=== PATIENT | male | born 1945 | race Caucasian/White ===

== ENCOUNTER → 2017-10-04 | Outpatient (CLI) | payer OTHER ==
[~2017-10-04] MED LIST: OMNIPAQUE 350 MG/ML, 100ML BOTTLE ONE
== END | disposition home or self-care (01) ==
LOC: CFH 08:28
PROVIDERS: ATTEND Family Medicine
DX: C78.7 Secondary malignant neoplasm of liver and intrahepatic bile duct (principal); C18.9 Malignant neoplasm of colon, unspecified; K62.5 Hemorrhage of anus and rectum; R59.1 Generalized enlarged lymph nodes; K62.89 Other specified diseases of anus and rectum; N28.1 Cyst of kidney, acquired
CPT/HCPCS: 74177; 82565; Q9967

== ENCOUNTER 2017-10-14 09:12 | Day surgery (SDC) | payer OTHER ==
[~2017-10-14] VITALS: Ht 180.3 cm; Wt 69.6 kg
[2017-10-14 09:46] VITALS: BP 120/71
[2017-10-14] MEDS ORDERED: SODIUM CHLORIDE 0.9% 1,000 ML IV SCH (10:03)
[2017-10-14 10:15] LABS: INTERNATIONAL NORMALIZED RATIO 1.04 (0.93-1.1); PROTHROMBIN TIME 10.7 Seconds (9.6-11.5)
[2017-10-14] MEDS ORDERED: LIDOCAINE 1%, 20ML ONE (10:23)
[2017-10-14] MEDS ORDERED: FENTANYL PF 100 MCG/2ML ONE (10:43)
[2017-10-14] MEDS ORDERED: MIDAZOLAM 1 MG/ML, 2ML ONE (10:43)
== END 2017-10-14 12:37 ==
LOC: OUT 09:12
PROVIDERS: ATTEND Family Medicine
DX: C22.7 Other specified carcinomas of liver (principal); C18.9 Malignant neoplasm of colon, unspecified; F32.9 Major depressive disorder, single episode, unspecified
CPT/HCPCS: 36415; 47000; 77012; 85610; 88307; 99156; J2250; J3010; J3490; J7030; 99157

== ENCOUNTER 2017-11-18 09:00 | Day surgery (SDC) | payer OTHER ==
[~2017-11-18] VITALS: Ht 180.3 cm; Wt 69.8 kg
[2017-11-18] MEDS ORDERED: SODIUM CHLORIDE 0.9% 1,000 ML IV SCH (09:51)
[2017-11-18] MEDS ORDERED: CEFAZOLIN PMX 1GM/50ML 50 ML ONE (09:56)
[2017-11-18] MEDS ORDERED: CEFAZOLIN PMX 1GM/50ML 50 ML IV ONE (10:00)
[2017-11-18 10:14] VITALS: BP 118/67
[2017-11-18] MEDS ORDERED: NONE PER PT (10:21)
[2017-11-18] MEDS ORDERED: FENTANYL PF 100 MCG/2ML ONE ×2 (12:03)
[2017-11-18] MEDS ORDERED: FLUMAZENIL 0.1 MG/1 ML, 5ML ONE (12:04)
[2017-11-18] MEDS ORDERED: LIDOCAINE 2%, 20ML ONE (12:04)
[2017-11-18] MEDS ORDERED: MIDAZOLAM 1 MG/ML, 5ML ONE (12:04)
[2017-11-18] MEDS ORDERED: NALOXONE 1 MG/ML, 2ML ONE (12:04)
== END 2017-11-18 14:25 ==
LOC: RAD 09:00
PROVIDERS: ATTEND Internal Medicine Hematology & Oncology
DX: Z45.2 Encounter for adjustment and management of vascular access device (principal); C18.7 Malignant neoplasm of sigmoid colon; D50.9 Iron deficiency anemia, unspecified; Z87.891 Personal history of nicotine dependence
CPT/HCPCS: 36561; 76937; 77001; 99156; 99157; C1788; C1894; J0690; J1642; J2250; J3010; J3490; J7030; J2310

== ENCOUNTER → 2018-03-11 | Outpatient (CLI) | payer OTHER ==
[~2018-03-11] MED LIST changes: +CHEMO; +NONE PER PT
[2018-03-11 09:35] LABS: CREATININE 0.85 mg/dL (0.7-1.3)
== END | disposition home or self-care (01) ==
LOC: RAD 08:42
PROVIDERS: ATTEND Internal Medicine Hematology & Oncology
DX: C78.7 Secondary malignant neoplasm of liver and intrahepatic bile duct (principal); C20 Malignant neoplasm of rectum; N28.1 Cyst of kidney, acquired
CPT/HCPCS: 36415; 71260; 74177; 82565; Q9967

== ENCOUNTER → 2018-06-20 | Outpatient (CLI) | payer OTHER ==
[~2018-06-20] MED LIST changes: +CEFD300C37 PO; +FURO-93 PO; +METO25TA91 PO; +METR500T PO; +OMEP-110 PO; +POTA20PA25 PO
== END | disposition home or self-care (01) ==
LOC: RAD 11:20
PROVIDERS: ATTEND Internal Medicine Hematology & Oncology
DX: C78.7 Secondary malignant neoplasm of liver and intrahepatic bile duct (principal); C20 Malignant neoplasm of rectum; I25.10 Atherosclerotic heart disease of native coronary artery without angina pectoris; K43.5 Parastomal hernia without obstruction or gangrene
CPT/HCPCS: 71260; 74177; Q9967

== ENCOUNTER → 2018-07-17 | Outpatient (CLI) | payer OTHER ==
[~2018-07-17] MED LIST changes: -OMNIPAQUE 350 MG/ML, 100ML BOTTLE ONE; +[UNRECOGNIZED DRUG - REMARK]
== END | disposition home or self-care (01) ==
LOC: STAR 09:12
PROVIDERS: ATTEND Surgery
DX: Z01.818 Encounter for other preprocedural examination (principal); K43.5 Parastomal hernia without obstruction or gangrene
CPT/HCPCS: 93005

== ENCOUNTER 2018-07-23 11:09 | Day surgery (SDC) | payer OTHER ==
[~2018-07-23] VITALS: Ht 182.9 cm; Wt 75.5 kg
[~2018-07-23 11:09] MED LIST changes: +BUPIVACAINE/PF-EPI 0.5% 1:200K ONE
[2018-07-23 11:32] VITALS: BP 125/78
[2018-07-23] MEDS ORDERED: LACTATED RINGERS 1,000 ML IV SCH (11:35)
[2018-07-23] MEDS ORDERED: FENTANYL PF 100 MCG/2ML ONE ×4 (11:36→15:36)
[2018-07-23] MEDS ORDERED: LABETALOL 5MG/ML, 20ML IV PRN (12:00)
[2018-07-23] MEDS ORDERED: DIPHENHYDRAMINE 50 MG/ML, 1ML IVPush PRN (12:00)
[2018-07-23] MEDS ORDERED: PROCHLORPERAZINE 5 MG/ML, 2ML IM PRN (12:00)
[2018-07-23] MEDS ORDERED: GABAPENTIN 300 MG CAPSULE PO ONE (12:00)
[2018-07-23] MEDS ORDERED: hydrALAzine 20 MG/ML, 1ML IV PRN (12:00)
[2018-07-23] MEDS ORDERED: ACETAMINOPHEN 500 MG TABLET PO ONE (12:00)
[2018-07-23] MEDS ORDERED: PROPOFOL 10 MG/ML, 20ML ONE (12:45)
[2018-07-23] MEDS ORDERED: DEXAMETHASONE 4 MG/ML, 1ML ONE (12:45)
[2018-07-23] MEDS ORDERED: ROCURONIUM 10 MG/ML,10ML ONE (12:45)
[2018-07-23] MEDS ORDERED: CEFAZOLIN 1,000 MG ONE (12:45)
[2018-07-23] MEDS ORDERED: NEOSTIGMINE 1 MG/ML, 10ML ONE (12:45)
[2018-07-23] MEDS ORDERED: ESMOLOL 100 MG/10 ML ONE (12:45)
[2018-07-23] MEDS ORDERED: SUCCINYLCHOLINE 20 MG/ML, 10ML ONE (12:45)
[2018-07-23] MEDS ORDERED: GLYCOPYRROLATE 0.2MG/1ML, 5ML ONE (12:45)
[2018-07-23] MEDS ORDERED: ONDANSETRON 2MG/ML, 2ML ONE (12:45)
[2018-07-23] MEDS: FENTANYL PF 100 MCG/2ML IV PRN ×3 (14:27→15:05)
[2018-07-23] MEDS ORDERED: OXYcodone 5 MG/5 ML ORAL.SOL UDC ONE (14:27)
[2018-07-23] MEDS: OXYcodone 5 MG/5 ML ORAL.SOL UDC PO PRN ×2 (14:29→18:06)
[2018-07-23] MEDS ORDERED: OXYcodone 5 MG/5 ML ORAL.SOL UDC PO PRN (14:30)
[2018-07-23] MEDS ORDERED: MEPERIDINE/PF 50 MG/ML ONE (14:38)
[2018-07-23] MEDS: MEPERIDINE/PF 25MG/0.5ML IVPush PRN ×2 (14:43→14:52)
[2018-07-23] MEDS ORDERED: HYDROmorphone 2 MG/ML, 1ML ONE (15:14)
[2018-07-23] MEDS: HYDROmorphone 1 MG/ML, 1ML IV PRN ×2 (15:20→15:27)
[2018-07-23] MEDS ORDERED: DIAZEPAM 5 MG TABLET ONE (15:31)
[2018-07-23] MEDS ORDERED: DIAZEPAM 5 MG TABLET PO ONE (16:00)
[2018-07-23] MEDS ORDERED: morphine SULFATE 10 MG/ML, 1ML ONE (17:20)
[2018-07-23] MEDS ORDERED: morphine SULFATE 10 MG/ML, 1ML IVPush ONE (17:30)
== END 2018-07-23 18:50 | disposition home or self-care (01) ==
LOC: OUT 11:09
PROVIDERS: ATTEND Surgery
DX: K43.5 Parastomal hernia without obstruction or gangrene (principal); Z87.891 Personal history of nicotine dependence; Z85.048 Personal history of other malignant neoplasm of rectum, rectosigmoid junction, and anus; Z93.3 Colostomy status
CPT/HCPCS: 49654; J0330; J0690; J1100; J1170; J2175; J2270; J2405; J2704; J2710; J3010; J3490; J7120; S2900; C1781

== ENCOUNTER → 2018-10-01 | Outpatient (CLI) | payer MEDICARE, OTHER ==
[~2018-10-01] MED LIST changes: -BUPIVACAINE/PF-EPI 0.5% 1:200K ONE; +OMNIPAQUE 350 MG/ML, 100ML BOTTLE ONE
== END | disposition home or self-care (01) ==
LOC: CFH 08:52
PROVIDERS: ATTEND Internal Medicine Hematology & Oncology
DX: K43.5 Parastomal hernia without obstruction or gangrene (principal); C78.5 Secondary malignant neoplasm of large intestine and rectum; C20 Malignant neoplasm of rectum
CPT/HCPCS: 71260; 74160; 82565; Q9967

== ENCOUNTER → 2019-01-13 | Outpatient (CLI) | payer MEDICARE | END | disposition home or self-care (01) | LOC: CFH 10:40 | PROVIDERS: ATTEND Internal Medicine Hematology & Oncology | DX: C20 Malignant neoplasm of rectum (principal); K76.9 Liver disease, unspecified; R91.1 Solitary pulmonary nodule | CPT/HCPCS: 71260; 74177; Q9967 ==

== ENCOUNTER 2019-04-08 09:21 | Outpatient (CLI) | payer MEDICARE | END 2019-04-08 23:59 | disposition home or self-care (01) | LOC: CFH 09:21 | PROVIDERS: ATTEND Pathology Hematology | DX: C78.7 Secondary malignant neoplasm of liver and intrahepatic bile duct (principal); C20 Malignant neoplasm of rectum; R59.9 Enlarged lymph nodes, unspecified; R91.8 Other nonspecific abnormal finding of lung field; R59.0 Localized enlarged lymph nodes; Z93.3 Colostomy status | CPT/HCPCS: 71260; 74177; Q9967 ==

== ENCOUNTER → 2019-08-06 | Outpatient (CLI) | payer MEDICARE | END | disposition home or self-care (01) | LOC: CFH 13:17 | PROVIDERS: ATTEND Pathology Hematology | DX: C78.7 Secondary malignant neoplasm of liver and intrahepatic bile duct (principal); C20 Malignant neoplasm of rectum; R91.8 Other nonspecific abnormal finding of lung field; M47.816 Spondylosis without myelopathy or radiculopathy, lumbar region; Z87.891 Personal history of nicotine dependence | CPT/HCPCS: 71260; 74177; Q9967 ==

== ENCOUNTER 2019-08-18 14:30 | Outpatient (CLI) | payer MEDICARE ==
[~2019-08-18 14:30] MED LIST changes: -OMNIPAQUE 350 MG/ML, 100ML BOTTLE ONE
== END 2019-08-18 23:59 | disposition home or self-care (01) ==
LOC: ROC 14:30
PROVIDERS: ATTEND Radiology Radiation Oncology
DX: C20 Malignant neoplasm of rectum (principal); C78.7 Secondary malignant neoplasm of liver and intrahepatic bile duct
CPT/HCPCS: 99214; G0463

== ENCOUNTER 2019-09-19 23:24 | Observation (INO) | payer MEDICARE ==
[~2019-09-19] VITALS: Ht 180.3 cm; Wt 72.5 kg
[2019-09-20] MEDS ORDERED: ONDANSETRON 2MG/ML, 2ML IVPush ONE
[2019-09-20] MEDS ORDERED: SODIUM CHLORIDE 0.9% 1,000ML IVBOLUS ONE
[2019-09-20] MEDS ORDERED: SODIUM CHLORIDE FLUSH 10ML SYR IVF ONE
[2019-09-20] MEDS ORDERED: HYDROmorphone 2 MG/ML, 1ML IVPush PRN
[2019-09-20] MEDS ORDERED: HYDROmorphone 1 MG/ML, 1ML INJ ONE (00:08)
[2019-09-20] MEDS ORDERED: ONDANSETRON 2MG/ML, 2ML ONE (00:08)
[2019-09-20 00:14] LABS: BASOPHILS # (AUTO) 0.02 x10^3/uL (0-0.1); BASOPHILS % (AUTO) 0 % (0-1); EOSINOPHILS # (AUTO) 0.01 x10^3/uL (0-0.4); EOSINOPHILS % (AUTO) 0 % (1-7); LYMPHOCYTES # (AUTO) 0.95 x10^3/uL (1-3.4); LYMPHOCYTES % (AUTO) 8 % (22-44); MD NO; MEAN CORPUSCULAR HEMOGLOBIN 27.4 pg (27.5-34.5); MEAN CORPUSCULAR HGB CONC 31.7 g/dL (33.2-36.2); MEAN CORPUSCULAR VOLUME 86.5 fL (81-97); MEAN PLATELET VOLUME 7.7 fL (7.4-10.4); MONOCYTES # (AUTO) 0.94 x10^3/uL (0.2-0.8); MONOCYTES % (AUTO) 8 % (2-9); NEUTROPHILS # (AUTO) 9.89 x10^3/uL (1.8-6.8); NEUTROPHILS % (AUTO) 84 % (42-75); PLATELET COUNT 343 x10^3/uL (130-400); RED CELL DISTRIBUTION WIDTH 16.9 % (9.4-14.8)
--- NOTE | 2019-09-20 00:21 | NUR ---
PT TO US WITH TECH AT THIS TIME. FAMILY WAITING IN ROOM.
[2019-09-20 00:26] LABS: ALANINE AMINOTRANSFERASE 24 U/L (12-78); ALBUMIN 2.1 g/dL (3.4-5.0); ANION GAP 12 mmol/L (5-15); CHLORIDE 103 mmol/L (98-107); CREATININE 0.93 mg/dL (0.7-1.3)
[2019-09-20 00:28] LABS: ALKALINE PHOSPHATASE 270 U/L (45-117); BILIRUBIN,TOTAL 0.6 mg/dL (0.2-1.0); TOTAL PROTEIN 7.2 g/dL (6.4-8.2)
[2019-09-20] MEDS ORDERED: DIPHENHYDRAMINE 50 MG/ML, 1ML ONE (01:29)
[2019-09-20] MEDS ORDERED: METOCLOPRAMIDE 5 MG/ML, 2ML ONE (01:29)
[2019-09-20] MEDS ORDERED: SODIUM CHLORIDE 0.9% 1,000 ML IV SCH (01:30)
[2019-09-20] MEDS ORDERED: METOCLOPRAMIDE 5 MG/ML, 2ML IVPush ONE (01:30)
[2019-09-20] MEDS ORDERED: DIPHENHYDRAMINE 50 MG/ML, 1ML IVPush ONE (01:30)
--- NOTE | 2019-09-20 01:53 | NUR ---
PT TO CT NOW. REPORT CALLED TO KASHMIR LYMAN. PT RTG WHEN HE RETURNS FROM CT
--- NOTE | 2019-09-20 02:00 | NUR ---
PT RETURNED FROM CT. PT TO ADMIT BED NOW
[2019-09-20 02:50] LABS: MICROSCOPIC NOT IND
[2019-09-20 02:53] LABS: CULTURE INDICATED? NO
[2019-09-20 03:28] VITALS: BP 112/62
[2019-09-20] MEDS ORDERED: PROMETHAZINE 25 MG/ML, 1ML IM PRN (03:30)
[2019-09-20] MEDS ORDERED: ACETAMINOPHEN 325 MG TABLET PO PRN (03:30)
[2019-09-20] MEDS ORDERED: HEPARIN 25,000 UNITS/500ML PMX 500 ML IV PRN (03:30)
[2019-09-20] MEDS ORDERED: HEPARIN 5,000 UNITS/ML, 1ML IV ONE (03:30)
[2019-09-20] MEDS ORDERED: LACTATED RINGERS 1,000 ML IV SCH (03:30)
[2019-09-20] MEDS ORDERED: ONDANSETRON 2MG/ML, 2ML IVPush PRN (03:30)
[2019-09-20] MEDS ORDERED: morphine SULFATE 10 MG/ML, 1ML IVPush PRN (03:30)
[2019-09-20 04:34] LABS: INTERNATIONAL NORMALIZED RATIO 1.11 (0.93-1.1); PROTHROMBIN TIME 11.8 Seconds (9.6-11.5)
[2019-09-20] MEDS: PIPERACILLIN/TAZO/PMX 3.375GM 50 ML IV SCH ×2 (05:45→11:12)
[2019-09-20] MEDS ORDERED: OMNIPAQUE 350 MG/ML, 100ML BOTTLE ONE (06:01)
[2019-09-20 08:15] VITALS: BP 112/61
[2019-09-20] MEDS: POLYETHYLENE GLYCOL 17 GM PACKET PO SCH (08:38)
[2019-09-20] MEDS: LACTULOSE 20 GM/30 ML UDC PO SCH ×2 (11:38→22:14)
[2019-09-20] MEDS: HEPARIN 5,000 UNITS/ML, 1ML IV PRN ×2 (13:54→22:13)
[2019-09-20] MEDS: METRONIDAZOLE PMX 500MG/100ML 100 ML IV SCH ×2 (13:54→22:13)
[2019-09-20 14:50] VITALS: BP 108/65
[2019-09-20] MEDS: CEFTRIAXONE PMX 1GM/50ML 50 ML IV SCH (15:12)
[2019-09-20] MEDS: LACTATED RINGERS 1,000 ML IV SCH (20:27)
[2019-09-20 22:23] VITALS: BP 113/65
[2019-09-21 00:12] VITALS: BP 107/63
[2019-09-21 04:22] LABS: BASOPHILS # (AUTO) 0.01 x10^3/uL (0-0.1); BASOPHILS % (AUTO) 0 % (0-1); EOSINOPHILS % (AUTO) 1 % (1-7); LYMPHOCYTES # (AUTO) 1.61 x10^3/uL (1-3.4); LYMPHOCYTES % (AUTO) 21 % (22-44); MD NO; MEAN CORPUSCULAR HEMOGLOBIN 27.3 pg (27.5-34.5); MEAN CORPUSCULAR HGB CONC 31.6 g/dL (33.2-36.2); MEAN CORPUSCULAR VOLUME 86.4 fL (81-97); MEAN PLATELET VOLUME 7.7 fL (7.4-10.4); MONOCYTES # (AUTO) 0.88 x10^3/uL (0.2-0.8); MONOCYTES % (AUTO) 11 % (2-9); NEUTROPHILS # (AUTO) 5.12 x10^3/uL (1.8-6.8); NEUTROPHILS % (AUTO) 66 % (42-75); PLATELET COUNT 318 x10^3/uL (130-400); RED BLOOD COUNT 3.95 x10^6/uL (4.38-5.82); RED CELL DISTRIBUTION WIDTH 17.1 % (9.4-14.8)
[2019-09-21 04:30] LABS: ALANINE AMINOTRANSFERASE 17 U/L (12-78); ANION GAP 9 mmol/L (5-15); CALCIUM 8.6 mg/dL (8.5-10.1); CHLORIDE 107 mmol/L (98-107); CREATININE 0.82 mg/dL (0.7-1.3)
[2019-09-21 04:32] LABS: ALKALINE PHOSPHATASE 265 U/L (45-117); BILIRUBIN,TOTAL 0.4 mg/dL (0.2-1.0); TOTAL PROTEIN 6.7 g/dL (6.4-8.2)
[2019-09-21] MEDS: HEPARIN 5,000 UNITS/ML, 1ML IV PRN ×2 (04:46→12:06)
[2019-09-21] MEDS ORDERED: HEPARIN 25,000 UNITS/250ML PMX 250 ML IV PRN ×2 (05:00)
[2019-09-21] MEDS: LACTATED RINGERS 1,000 ML IV SCH (05:04)
[2019-09-21] MEDS: METRONIDAZOLE PMX 500MG/100ML 100 ML IV SCH ×2 (05:59→13:55)
[2019-09-21 07:26] VITALS: BP 116/66
[2019-09-21] MEDS: POLYETHYLENE GLYCOL 17 GM PACKET PO SCH (08:59)
[2019-09-21] MEDS: LACTULOSE 20 GM/30 ML UDC PO SCH (08:59)
[2019-09-21] MEDS ORDERED: APIX5TAB PO (12:31)
[2019-09-21 14:38] VITALS: BP 116/67
[2019-09-21] MEDS: CEFTRIAXONE PMX 1GM/50ML 50 ML IV SCH (15:05)
== END 2019-09-21 16:23 | disposition home or self-care (01) ==
LOC: ED 09-20 00:19 → EDIP 09-20 01:16 → INTOOBSV 09-20 01:16 → 4NE 09-20 02:07 → DCLOUNGE 09-21 16:04
PROVIDERS: ADMIT Family Medicine; ATTEND Hospitalist
DX: I81 Portal vein thrombosis (principal); E43 Unspecified severe protein-calorie malnutrition; C20 Malignant neoplasm of rectum; C78.7 Secondary malignant neoplasm of liver and intrahepatic bile duct; C78.00 Secondary malignant neoplasm of unspecified lung; C79.51 Secondary malignant neoplasm of bone; E87.2 Acidosis; I50.22 Chronic systolic (congestive) heart failure; K80.10 Calculus of gallbladder with chronic cholecystitis without obstruction; K59.00 Constipation, unspecified; R73.9 Hyperglycemia, unspecified; E86.0 Dehydration; D50.9 Iron deficiency anemia, unspecified; Z79.01 Long term (current) use of anticoagulants; Z68.22 Body mass index [BMI] 22.0-22.9, adult; Z87.891 Personal history of nicotine dependence
CPT/HCPCS: 36415; 71045; 74021; 74177; 76700; 78226; 80053; 81003; 83605; 83690; 83735; 84100; 84145; 85025; 85520; 85610; 87040; 96361; 96365; 96366; 96367; 96375; 96376; 99285; A9537; G0378; J0696; J1170; J1200; J1644; J2405; J2543; J2765; J7030; J7120; Q9967; 96374

== ENCOUNTER 2019-10-21 08:13 | Outpatient (CLI) | payer MEDICARE ==
[~2019-10-21 08:13] MED LIST changes: +APIX5TAB PO
== END 2019-10-21 23:59 | disposition home or self-care (01) ==
LOC: ROC 08:13
PROVIDERS: ATTEND Radiology Radiation Oncology
DX: C79.51 Secondary malignant neoplasm of bone (principal)
CPT/HCPCS: 99212; G0463

== ENCOUNTER 2019-11-05 12:42 | Inpatient (IN) | payer MEDICARE ==
[~2019-11-05] VITALS: Ht 180.3 cm; Wt 66.8 kg
--- NOTE | 2019-11-05 12:55 | NUR ---
1234: PT ARRIVED FROM INFUSION ROOM. PER REPORT RN WAS FLUSHING PT PORT. PT STATED "DIDNT FEEL GOOD" PT HAD SYNCOPAL EPISODE. BP 70'S. PT BEGAN TO FEEL BETTER PRIOR TO ARRIVAL. PT PALE. PT PLACED ON MONITORING EQUIPMENT. DR GO AT BEDSIDE TO RULA PT.
--- NOTE | 2019-11-05 12:56 | NUR ---
MARINE PHOTOGRAPHER AT BEDSIDE TO DRAW LABS. IV INFUSING WITHOUT REDNESS/SWELLING. PT SR/ST WITH OCC PVC'S PER MONITOR. PT STATES "FEELS LITTLE DIZZY, NOT MUCH"
[2019-11-05] MEDS ORDERED: SODIUM CHLORIDE 0.9% 1,000ML IVBOLUS ONE (13:00)
[2019-11-05] MEDS ORDERED: SODIUM CHLORIDE FLUSH 10ML SYR IVF ONE (13:00)
[2019-11-05 13:14] LABS: ALBUMIN 2.4 g/dL (3.4-5.0); ANION GAP 8 mmol/L (5-15); CALCIUM 8.5 mg/dL (8.5-10.1); CHLORIDE 106 mmol/L (98-107)
[2019-11-05 13:17] LABS: ALANINE AMINOTRANSFERASE 18 U/L (12-78); ALKALINE PHOSPHATASE 309 U/L (45-117); BILIRUBIN,TOTAL 0.8 mg/dL (0.2-1.0); CREATININE 0.94 mg/dL (0.7-1.3)
--- NOTE | 2019-11-05 13:30 | NUR ---
CENTRAL LINE DRESSING CHANGED.
--- NOTE | 2019-11-05 13:30 | NUR ---
PT ASKING FOR "SOMETHING TO EAT" DISCUSSED WITH DR GO, OK TO ORDER MEAL TRAY. PT PREFERS SOFT DIET "I DONT HAVE ANY TEETH" IV INFUSING WITHOUT IN PORT ACCESSED IN INFUSION ROOM. SR WITH PVC'S PER MONITOR. BP INCREASED TO 101/55
[2019-11-05 13:40] LABS: MEAN CORPUSCULAR HEMOGLOBIN 25.5 pg (27.5-34.5); MEAN CORPUSCULAR HGB CONC 31.9 g/dL (33.2-36.2); MEAN CORPUSCULAR VOLUME 79.8 fL (81-97); MEAN PLATELET VOLUME 7.1 fL (7.4-10.4); PLATELET COUNT 234 x10^3/uL (130-400); RED BLOOD COUNT 3.66 x10^6/uL (4.38-5.82); RED CELL DISTRIBUTION WIDTH 19.2 % (9.4-14.8)
[2019-11-05 13:43] LABS: MD YES
[2019-11-05 13:47] LABS: LYMPH#(MANUAL) 1.09 x10^3/uL (1-3.4); LYMPHS% (MANUAL) 68 % (22-44); SEG#(MANUAL) 0.51 x10^3/uL (1.8-6.8); SEGS% (MANUAL) 32 % (42-75)
[2019-11-05 13:48] LABS: <PLATELET ESTIMATE> ADEQUATE; <PLT MORPHOLOGY> NORMAL PLT MORPH; ANISOCYTOSIS 1+; OVALOCYTES 1+
--- NOTE | 2019-11-05 14:18 | NUR ---
ED DIET TRAY DELIVERED.
--- NOTE | 2019-11-05 14:24 | NUR ---
PT PROVIDED URINAL FOR URINE SAMPLE.
[2019-11-05] MEDS ORDERED: SODIUM CHLORIDE 0.9% 1,000 ML IV ONE (14:30)
--- NOTE | 2019-11-05 16:08 | NUR ---
REPORT GIVEN TO MIKEY LYMAN. PT IS READY FOR TRANSFER AT THIS TIME.
[2019-11-05] MEDS ORDERED: ONDANSETRON 2MG/ML, 2ML IVPush PRN (16:30)
[2019-11-05] MEDS ORDERED: ACETAMINOPHEN 325 MG TABLET PO PRN (16:30)
[2019-11-05] MEDS ORDERED: DOCUSATE 100 MG CAPSULE PO PRN (16:30)
[2019-11-05] MEDS ORDERED: ONDANSETRON ODT 4 MG PO PRN (16:30)
[2019-11-05] MEDS ORDERED: ENALAPRILAT 1.25 MG/ML, 2ML IVPush PRN (16:30)
[2019-11-05 17:35] VITALS: BP 98/61
[2019-11-05 17:48] LABS: MICROSCOPIC INDICATED
[2019-11-05] MEDS: ENOXAPARIN 40 MG/0.4 ML SQ SCH (17:54)
[2019-11-05 18:00] LABS: CULTURE INDICATED? YES
[2019-11-05 20:19] VITALS: BP 106/61
[2019-11-05 20:20] VITALS: BP 106/67
[2019-11-05 20:21] VITALS: BP 99/60
[2019-11-05] MEDS: SODIUM CHLORIDE 0.9% 1,000 ML IV SCH (21:49)
[2019-11-06] VITALS (8 sets, daily range): BP systolic 101–118; BP diastolic 60–67
[2019-11-06] MEDS ORDERED: MAGNESIUM SULFATE PMX 2GM/50ML 50 ML IV ONE (01:00)
[2019-11-06] MEDS: SODIUM CHLORIDE 0.9% 1,000 ML IV SCH ×3 (05:01→21:17)
[2019-11-06 06:19] LABS: ALANINE AMINOTRANSFERASE 15 U/L (12-78); ALBUMIN 1.9 g/dL (3.4-5.0); ANION GAP 7 mmol/L (5-15); CALCIUM 7.7 mg/dL (8.5-10.1); CHLORIDE 111 mmol/L (98-107); CREATININE 0.57 mg/dL (0.7-1.3)
[2019-11-06 06:20] LABS: MEAN CORPUSCULAR HEMOGLOBIN 25.9 pg (27.5-34.5); MEAN CORPUSCULAR HGB CONC 32.2 g/dL (33.2-36.2); MEAN CORPUSCULAR VOLUME 80.5 fL (81-97); MEAN PLATELET VOLUME 7.5 fL (7.4-10.4); PLATELET COUNT 145 x10^3/uL (130-400); RED BLOOD COUNT 2.85 x10^6/uL (4.38-5.82); RED CELL DISTRIBUTION WIDTH 19.5 % (9.4-14.8)
[2019-11-06 06:21] LABS: ALKALINE PHOSPHATASE 240 U/L (45-117); BILIRUBIN,TOTAL 0.6 mg/dL (0.2-1.0); TOTAL PROTEIN 5.7 g/dL (6.4-8.2)
[2019-11-06 07:07] LABS: MD YES
[2019-11-06 07:12] LABS: <PLATELET ESTIMATE> ADEQUATE; <PLT MORPHOLOGY> NORMAL PLT MORPH; ANISOCYTOSIS 1+; EOS#(MANUAL) 0.02 x10^3/uL (0.0-0.4); EOS% (MANUAL) 2 % (1-7); LYMPH#(MANUAL) 0.73 x10^3/uL (1-3.4); LYMPHS% (MANUAL) 66 % (22-44); MONOS#(MANUAL) 0.03 x10^3/uL (0.3-2.7); MONOS% (MANUAL) 3 % (2-9); SEG#(MANUAL) 0.32 x10^3/uL (1.8-6.8); SEGS% (MANUAL) 29 % (42-75)
[2019-11-06] MEDS ORDERED: TBO-FILGRASTIM 300 MCG/0.5 ML SQ ONE (12:00)
[2019-11-06] MEDS: ENOXAPARIN 40 MG/0.4 ML SQ SCH (18:00)
[2019-11-07 01:09] VITALS: BP_SYST 105; BP_SYST 109; BP_SYST 123; BP_DIAS 62; BP_DIAS 65; BP_DIAS 75
[2019-11-07] MEDS: SODIUM CHLORIDE 0.9% 1,000 ML IV SCH (04:31)
[2019-11-07 04:52] LABS: ANION GAP 7 mmol/L (5-15); CALCIUM 7.6 mg/dL (8.5-10.1); CHLORIDE 113 mmol/L (98-107); CREATININE 0.69 mg/dL (0.7-1.3)
[2019-11-07 05:06] LABS: MEAN CORPUSCULAR HEMOGLOBIN 25.5 pg (27.5-34.5); MEAN CORPUSCULAR HGB CONC 31.7 g/dL (33.2-36.2); MEAN CORPUSCULAR VOLUME 80.6 fL (81-97); MEAN PLATELET VOLUME 7.6 fL (7.4-10.4); PLATELET COUNT 155 x10^3/uL (130-400); RED CELL DISTRIBUTION WIDTH 19.4 % (9.4-14.8)
[2019-11-07 05:42] LABS: MD YES
[2019-11-07 05:46] LABS: BAND#(MANUAL) 0.08 x10^3/uL; BANDS%(MANUAL) 6 % (0-7); EOS#(MANUAL) 0.03 x10^3/uL (0.0-0.4); EOS% (MANUAL) 2 % (1-7); LYMPH#(MANUAL) 0.92 x10^3/uL (1-3.4); LYMPHS% (MANUAL) 66 % (22-44); MONOS#(MANUAL) 0.08 x10^3/uL (0.3-2.7); MONOS% (MANUAL) 6 % (2-9); NRBC % (MANUAL) 1 % (0-1); SEG#(MANUAL) 0.28 x10^3/uL (1.8-6.8); SEGS% (MANUAL) 20 % (42-75)
[2019-11-07 05:47] LABS: <PLATELET ESTIMATE> ADEQUATE; <PLT MORPHOLOGY> NORMAL PLT MORPH; ANISOCYTOSIS 1+
[2019-11-07 05:48] LABS: OVALOCYTES 1+
[2019-11-07 07:31] VITALS: BP 100/61
[2019-11-07 07:32] VITALS: BP 107/68
[2019-11-07 07:33] VITALS: BP 115/60
[2019-11-07] MEDS: CEFTRIAXONE PMX 1GM/50ML 50 ML IV SCH (07:56)
[2019-11-07 12:37] VITALS: BP 110/64
[2019-11-07] MEDS: TBO-FILGRASTIM 300 MCG/0.5 ML SQ PRN (12:48)
[2019-11-07] MEDS: ENOXAPARIN 40 MG/0.4 ML SQ SCH (16:24)
[2019-11-07 19:36] VITALS: BP 111/63
[2019-11-08] VITALS (7 sets, daily range): BP systolic 95–114; BP diastolic 47–65
[2019-11-08 06:00] LABS: ANION GAP 8 mmol/L (5-15); CALCIUM 7.9 mg/dL (8.5-10.1); CHLORIDE 110 mmol/L (98-107)
[2019-11-08 06:02] LABS: CREATININE 0.48 mg/dL (0.7-1.3)
[2019-11-08 06:10] LABS: MEAN CORPUSCULAR HEMOGLOBIN 26.3 pg (27.5-34.5); MEAN CORPUSCULAR HGB CONC 32.4 g/dL (33.2-36.2); MEAN CORPUSCULAR VOLUME 81.2 fL (81-97); MEAN PLATELET VOLUME 7.4 fL (7.4-10.4); PLATELET COUNT 145 x10^3/uL (130-400); RED CELL DISTRIBUTION WIDTH 18.9 % (9.4-14.8)
[2019-11-08 06:29] LABS: MD YES
[2019-11-08 06:33] LABS: <PLATELET ESTIMATE> ADEQUATE; <PLT MORPHOLOGY> NORMAL PLT MORPH; ANISOCYTOSIS 1+; BAND#(MANUAL) 0.19 x10^3/uL; BANDS%(MANUAL) 10 % (0-7); EOS#(MANUAL) 0.02 x10^3/uL (0.0-0.4); EOS% (MANUAL) 1 % (1-7); LYMPHS% (MANUAL) 37 % (22-44); MONOS#(MANUAL) 0.13 x10^3/uL (0.3-2.7); MONOS% (MANUAL) 7 % (2-9); OVALOCYTES 1+; SEG#(MANUAL) 0.86 x10^3/uL (1.8-6.8); SEGS% (MANUAL) 45 % (42-75)
[2019-11-08] MEDS: CEFTRIAXONE PMX 1GM/50ML 50 ML IV SCH (08:17)
[2019-11-08] MEDS ORDERED: POTASSIUM CHLORIDE 20 MEQ TAB.ER.PRT PO ONE (10:00)
[2019-11-08] MEDS: TBO-FILGRASTIM 300 MCG/0.5 ML SQ PRN (13:52)
[2019-11-08] MEDS: ENOXAPARIN 40 MG/0.4 ML SQ SCH (17:38)
[2019-11-09 01:44] VITALS: BP 107/67
[2019-11-09 06:26] LABS: CHLORIDE 110 mmol/L (98-107)
[2019-11-09 06:28] VITALS: BP 109/73
[2019-11-09 06:35] LABS: BASOPHILS # (AUTO) 0.02 x10^3/uL (0-0.1); BASOPHILS % (AUTO) 1 % (0-1); EOSINOPHILS # (AUTO) 0.04 x10^3/uL (0-0.4); EOSINOPHILS % (AUTO) 1 % (1-7); LYMPHOCYTES # (AUTO) 1.43 x10^3/uL (1-3.4); LYMPHOCYTES % (AUTO) 47 % (22-44); MD NO; MEAN CORPUSCULAR HGB CONC 31.9 g/dL (33.2-36.2); MEAN CORPUSCULAR VOLUME 81.6 fL (81-97); MEAN PLATELET VOLUME 8.3 fL (7.4-10.4); MONOCYTES # (AUTO) 0.29 x10^3/uL (0.2-0.8); MONOCYTES % (AUTO) 9 % (2-9); NEUTROPHILS # (AUTO) 1.29 x10^3/uL (1.8-6.8); NEUTROPHILS % (AUTO) 42 % (42-75); PLATELET COUNT 190 x10^3/uL (130-400); RED BLOOD COUNT 3.24 x10^6/uL (4.38-5.82); RED CELL DISTRIBUTION WIDTH 19.1 % (9.4-14.8)
[2019-11-09 06:37] LABS: ANION GAP 7 mmol/L (5-15); CALCIUM 7.9 mg/dL (8.5-10.1); CREATININE 0.63 mg/dL (0.7-1.3)
[2019-11-09 07:34] LABS: BAND#(MANUAL) 0.22 x10^3/uL; BANDS%(MANUAL) 7 % (0-7); EOS#(MANUAL) 0.03 x10^3/uL (0.0-0.4); EOS% (MANUAL) 1 % (1-7); MONOS#(MANUAL) 0.22 x10^3/uL (0.3-2.7); MONOS% (MANUAL) 7 % (2-9); NRBC % (MANUAL) 2 % (0-1); SEGS% (MANUAL) 34 % (42-75)
[2019-11-09 07:35] LABS: ANISOCYTOSIS 1+; LYMPH#(MANUAL) 1.58 x10^3/uL (1-3.4); LYMPHS% (MANUAL) 51 % (22-44); OVALOCYTES 1+; POLYCHROMASIA 1+; SEG#(MANUAL) 1.05 x10^3/uL (1.8-6.8)
[2019-11-09 07:36] LABS: <PLATELET ESTIMATE> ADEQUATE; <PLT MORPHOLOGY> NORMAL PLT MORPH
[2019-11-09] MEDS: TBO-FILGRASTIM 300 MCG/0.5 ML SQ PRN (08:39)
[2019-11-09] MEDS: CEFTRIAXONE PMX 1GM/50ML 50 ML IV SCH (08:39)
[2019-11-09] MEDS ORDERED: CEFD300C37 PO (08:51)
== END 2019-11-09 10:30 | disposition home or self-care (01) | DRG 73 ==
LOC: ED 14:26 → EDIP 14:58 → 4EST 17:34 → DCLOUNGE 11-09 10:23
PROVIDERS: ADMIT Internal Medicine Infectious Disease; ATTEND Internal Medicine Infectious Disease
DX: G90.8 Other disorders of autonomic nervous system (principal); E43 Unspecified severe protein-calorie malnutrition; C19 Malignant neoplasm of rectosigmoid junction; E87.2 Acidosis; N39.0 Urinary tract infection, site not specified; T45.1X5A Adverse effect of antineoplastic and immunosuppressive drugs, initial encounter; D70.9 Neutropenia, unspecified; E86.0 Dehydration; Z68.20 Body mass index [BMI] 20.0-20.9, adult; Y92.89 Other specified places as the place of occurrence of the external cause; B96.20 Unspecified Escherichia coli [E. coli] as the cause of diseases classified elsewhere; D50.9 Iron deficiency anemia, unspecified; E87.6 Hypokalemia; I25.2 Old myocardial infarction; I49.3 Ventricular premature depolarization; K80.20 Calculus of gallbladder without cholecystitis without obstruction; Z82.49 Family history of ischemic heart disease and other diseases of the circulatory system; Z86.718 Personal history of other venous thrombosis and embolism; Z87.891 Personal history of nicotine dependence; Z93.3 Colostomy status
CPT/HCPCS: 36415; 71045; 80048; 80053; 81001; 82728; 83540; 83550; 83605; 83735; 84100; 84145; 84466; 85025; 87040; 87077; 87086; 87186; 93005; 99285; G0378; J0696; J1447; J3475; J7030